=== PATIENT | male | born 1985 | race Caucasian/White ===

== ENCOUNTER 2019-09-03 06:21 | Emergency (ER) | payer OTHER ==
[2019-09-03 06:29] VITALS: BP 149/100; PULSE 86; TEMP 97.9; BMI 27.8
[2019-09-03] MEDS ORDERED: KETOROLAC TROMETHAMINE 30 MG/1 ML VIAL IM ONE (06:38)
[2019-09-03] MEDS ORDERED: diazePAM 5 MG TABLET PO ONE (06:39)
[2019-09-03] MEDS ORDERED: LIDOCAINE 5% TOPICAL PATCH TP ONE (06:39)
[2019-09-03] MEDS ORDERED: KETOROLAC TROMETHAMINE 30 MG/1 ML VIAL ONE (06:44)
[2019-09-03] MEDS ORDERED: diazePAM 5 MG TABLET ONE (06:44)
[2019-09-03] MEDS ORDERED: LIDOCAINE 5% TOPICAL PATCH ONE (06:45)
--- NOTE | 2019-09-03 06:47 | PDOC ---
History of Present Illness - General Chief Complaint: Pain, Acute Stated Complaint: BACK PAIN Time Seen by Provider: 09/03/19 06:38 History Source: Patient Exam Limitations: No Limitations - History of Present Illness Initial Comments: 09/03/19 06:43 HPI: 33 YOM with no significant medical history presenting with acute onset of lower back pain since yesterday morning, after he got up from the toilet and strained his lower back. no fall or trauma. he describes a "punching" type of pain in his lower back, with tingling radiating down his legs, down to his left big toe. exacerbated with movement and standing, improved with rest. He has been using a back brace for immobilization, with some improvement. he was taking ibuprofen 400mg every 6 hours with some relief, last dose at 2AM. denies any bowel or bladder incontinence, retention, focal weakness or numbness. no urinary sx. has history of lower back strain, usually responding to rest and NSAIDS. Review of Systems Constitutional: no fevers or chills. Abdomen: no abdominal pain Genitorurinary: no urinary retention or incontinence, no dysuria, urgency or frequency. no hematuria MUSCULOSKELETAL: No joint pain and swelling. No muscle pain/arthralgias. Back: +back pain SKIN: no redness or skin changes, no discharge, no rash. No wounds. Hematologic: no easy bruising/bleeding. NEUROLOGIC: No weakness, numbness. +tingling. Allergic/Immunologic: no allergies All other systems reviewed and negative, or as documented in HPI. physical exam General: NAD, well appearing Abdomen: soft, no tenderness, nondistended Vascular: 2+ DP pulses symmetric and equal. Back: +diffuse lumbar tenderness, no stepoffs, FROM MSK: notable for soft compartments, Cap refill <2 sec. Proximal and distal strength 5/5, blacktop paver operator strength 5/5 - equal and symmetric. Plantar flexion and dorsiflexion 5/5. FROM. Sensation grossly intact to light touch. No calf tenderness. +SLR to the LLE. 2+ patellar reflexes. Neuro: alert, no focal neurologic deficits Skin: color normal color, warm and well perfused. Cap refill <2 sec. Past History - Past Medical History Allergies/Adverse Reactions: Allergies Allergy/AdvReac Type Severity Reaction Status Date / Time No Known Allergies Allergy Verified 09/03/19 06:22 Home Medications: Ambulatory Orders Diazepam [Valium] 5 mg PO Q8H PRN #9 tablet MDD 3 09/03/19 Ibuprofen 600 mg PO QID PRN #20 tablet 09/03/19 Lidocaine 5% Patch [Lidoderm Patch -] 1 patch TP DAILY #7 patch 09/03/19 Prednisone [Prednisone 50 MG TABLETS] 50 mg PO DAILY #4 tablet 09/03/19 COPD: No - Psycho Social/Smoking Cessation Hx Smoking History: Current every day smoker Have you smoked in the past 12 months: Yes Number of Cigarettes Smoked Daily: 6 Information on smoking cessation initiated: Yes Hx Alcohol Use: No Drug/Substance Use Hx: Yes (MARIJUANA OCCAS.) *Physical Exam - Vital Signs Last Vital Signs Temp Pulse Resp BP Pulse Ox 97.9 F 86 18 149/100 100 09/03/19 06:24 09/03/19 06:24 09/03/19 06:24 09/03/19 06:24 09/03/19 06:24 Medical Decision Making - Medical Decision Making 09/03/19 06:48 Vital Signs Temp Pulse Resp BP Pulse Ox 97.9 F 86 18 149/100 100 09/03/19 06:24 09/03/19 06:24 09/03/19 06:24 09/03/19 06:24 09/03/19 06:24 The patient presents with acute onset of back pain after 1 day and getting up from toilet. DDx back pain: back strain, lumbago, sciatica, radiculopathy, spinal stenosis. Muscle spasm. Lumbar radiculopathy. Clinically this patient can be ruled out for serious pathology given there is a completely normal neurological exam, no history of IV drug use, and no history of bowel or bladder incontinence, no perianal numbness/tingling, no constipation or urinary retention. Clinically doubt based on exam and clinical history: cord compression or cauda equina, with low suspicion and NO red flag sx such as age>50, malignancy, weight loss, trauma, fevers, IVDU, lumbar/spinal procedures, bowel and bladder incontinence/retention, urinary sx, neurologic deficits or changes. No risk factors or findings concerning for epidural abscess, discitis, vertebral osteomyelitis, cord compression, cauda equina, vertebral fracture or bone malignancy, radicular sx, worse in LLE no direct trauma or fall, low suspicion for fx, no imaging indicated/xray at this time. trial of prednisone, valium for spasms, toradol for pain control. Once the patients pain was adequately controlled, the patient was able to ambulate and be discharged in stable condition with anticipatory guidance provided. Can ambulate as tolerated, no heavy lifting, range of motion exercises encouraged. Rx meds, side effects reviewed, prn for analgesia/spasms. Patient instructed to consider further imaging and workup through their primary care physician as an outpatient if symptoms persist. rx analgesia, anti-spasmodic agents, rest and phys activity as tolerated. no back brace during day. side effect profile of meds provided orthopedic referral given in case conservative management does not work 09/03/19 07:04 09/06/19 09:18 Discharge - Discharge Information Problems reviewed: Yes Clinical Impression/Diagnosis: Lumbar back pain Sciatica Qualifiers: Laterality: left Qualified Code(s): M54.32 - Sciatica, left side Condition: Stable Disposition: HOME - Admission No - Additional Discharge Information Prescriptions: Diazepam [Valium] 5 mg PO Q8H PRN #9 tablet MDD 3 PRN Reason: Muscle Spasms Ibuprofen 600 mg PO QID PRN #20 tablet PRN Reason: Pain Lidocaine 5% Patch [Lidoderm Patch -] 1 patch TP DAILY #7 patch Prednisone [Prednisone 50 MG TABLETS] 50 mg PO DAILY #4 tablet - Follow up/Referral Referrals: Ezio Duff MD [Staff Physician] - Angel Wu MD [Staff Physician] - - Patient Discharge Instructions Patient Printed Discharge Instructions: DI for Back Pain With Sciatica, Activity May Be Better then Rest for Low Back Pain Recovery Additional Instructions: Please follow up with your Primary Care Doctor within 48-72 hours - call for an appointment. Ambulate as tolerated and no heavy lifting. You can use the lidoderm patch topically ever 12 hours on and then 12 hours off to help with myofascial pain. this is also available over the counter in case your insurance does not cover we can also trial steroids daily x 5 days to help with the radicular pain. Take Tylenol 650-975 mg every 6 hours or Motrin 600 mg every 8 hours for pain with food, Valium 5mg every 8 hours as needed for muscle spasm- do not drive or make any important decisions while on this medication for it can make you drowsy. If you experience any worsening pain, swelling, numbness, weakness please return to ER HOME CARE INSTRUCTIONS: For many people, back pain returns. Since low back pain is rarely dangerous, it is often a condition that people can learn to manage on their own. Please remain active. It is stressful on the back to sit or reshipping clerk one place. Do not sit, drive, or reshipping clerk one place for more than 30 minutes at a time. Take short walks on level surfaces as soon as pain allows. Try to increase the length of time you walk each day. Do not stay in bed. Resting more than 1 or 2 days can delay your recovery. Do not avoid exercise or work. Your body is made to move. It is not dangerous to be active, even though your back may hurt. Your back will likely heal faster if you return to being active before your pain is gone. Only take [id number] or prescription medicines as directed by your caregiver. [id number] medicines to reduce pain and inflammation are often the most helpful. Your caregiver may prescribe muscle relaxant drugs. These medicines help dull your pain so you can more quickly return to your normal activities and healthy exercise. Please avoid driving, operating heavy machinery or making important decisions while on this drug - it can cloud your judgment. Avoid feeling anxious or stressed. Stress increases muscle tension and can worsen back pain. It is important to recognize when you are anxious or stressed and learn ways to manage it. Exercise is a great option. SEEK MEDICAL CARE IF: You have pain that is not relieved with rest or medicine. You have pain that does not improve in 1 week. You have new symptoms. You are generally not feeling well. SEEK IMMEDIATE MEDICAL CARE IF: You have pain that radiates from your back into your legs. You develop new bowel or bladder control problems. You have unusual weakness or numbness in your arms or legs. You develop nausea or vomiting. You develop abdominal pain. You feel faint. - Post Discharge Activity Work/Back to School Note: Back to Work
[2019-09-03] MEDS ORDERED: predniSONE 20 MG TABLET (UD) PO ONE (07:04)
[2019-09-03] MEDS ORDERED: predniSONE 20 MG TABLET (UD) ONE (07:09)
== END 2019-09-03 07:28 | disposition home or self-care (01) ==
LOC: FER 06:21
PROC: 3E0233Z Introduction of Anti-inflammatory into Muscle, Percutaneous Approach (ICD-10-PCS; principal; 2019-09-03)
DX: M54.32 Sciatica, left side (principal); F17.210 Nicotine dependence, cigarettes, uncomplicated
CPT/HCPCS: 99281-25

== ENCOUNTER 2023-10-11 12:04 | Emergency (ER) | payer OTHER ==
[2023-10-11 13:36] VITALS: BP 168/91; PULSE 79; RESP 16; TEMP 98; BMI 27.8
== END 2023-10-11 13:36 | disposition home or self-care (01) ==
LOC: FER 12:04
DX: K62.5 Hemorrhage of anus and rectum (principal); K59.00 Constipation, unspecified; K92.1 Melena; K64.8 Other hemorrhoids
CPT/HCPCS: 99282-25